=== PATIENT | male | born 1965 | race Caucasian/White ===

== ENCOUNTER → 2016-11-18 | Outpatient (CLI) | payer OTHER ==
[2016-11-18 14:02] LABS: Blood Urea Nitrogen 16 mg/dL (9-20); Non-African American GFR(MDRD) >60 (>60 ml/min/1.73 sqM)
--- NOTE | 2016-11-18 15:28 | CT ---
EXAMINATION TYPE: CT urogram wo/w con DATE OF EXAM: 11/18/2016 2:53 PM COMPARISON: NONE HISTORY: Microscopic hematuria CT DLP: 3773 mGycm Automated exposure control for dose reduction was used. FINDINGS: The unenhanced images demonstrate no evidence of nephrolithiasis or cholelithiasis. Gallbladder is co ntracted. A fluid attenuated cortically-based left renal midpole 1.4 cm simple cyst is present on the cortical medullary phase. No enhancing renal mass is identified. No perinephric fat stranding or obs tructive uropathy is seen within either kidney. The kidneys enhance and excrete symmetrically. The ki dneys are relatively symmetric in size. The liver, spleen, adrenal glands, and pancreas are of normal enhancement and morphology. No pancreat ic ductal dilatation. The visualized bowel is within normal limits without evidence of obstruction. The ureters are of normal course and caliber with near complete opacification. Urinary bladder is cir cumferentially smooth with a urachal remnant noted. Few prominent periaortic lymph nodes are seen, wh ich are not enlarged, measuring up to 9 mm. The aorta is of normal course and caliber containing mode rate atheromatous changes. Scarring is noted at the right lung base anteriorly. Cardiac size is unrem arkable. Osseous structures appear intact. No suspicious osseous lesions are present. Degenerative ch anges are appreciated of the femoral acetabular joints, right greater than left. IMPRESSION: 1. NO EVIDENCE OF NEPHROLITHIASIS, FILLING DEFECT WITHIN THE URINARY COLLECTING SYSTEM, OR URINARY BL ADDER WALL THICKENING. 2. LEFT SIMPLE RENAL CYST.
== END | disposition home or self-care (01) ==
LOC: RADCTMAIN 13:27
PROVIDERS: ATTEND Family Medicine
DX: N28.1 Cyst of kidney, acquired (principal)
CPT/HCPCS: 82565; 84520; 74178; 36415; 74400; Q9967

== ENCOUNTER → 2019-06-07 | Outpatient (CLI) | payer OTHER ==
--- NOTE | 2019-06-07 15:47 | US ---
EXAMINATION TYPE: US carotid duplex BILAT DATE OF EXAM: 06/07/2019 COMPARISON: NONE CLINICAL HISTORY: E78.5 Hyperlipidemia R03.0 Elevated BP reading. Dizziness, hyperlipidemia, HTN EXAM MEASUREMENTS: RIGHT: Peak Systolic Velocity (PSV) cm/sec ----- Right CCA: 102.9 ----- Right ICA: 94.1 ----- Right ECA: 131.5 ICA/CCA ratio: 0.9 RIGHT: End Diastole cm/sec ----- Right CCA: 30.3 ----- Right ICA: 27.0 ----- Right ECA: 29.2 LEFT: Peak Systolic Velocity (PSV) cm/sec ----- Left CCA: 90.9 ----- Left ICA: 92.0 ----- Left ECA: 128.9 ICA/CCA ratio: 1.0 LEFT: End Diastole cm/sec ----- Left CCA: 24.9 ----- Left ICA: 30.4 ----- Left ECA: 26.7 VERTEBRALS (direction of flow): Right Vertebral: Antegrade Left Vertebral: Antegrade Rhythm: Normal Mild plaque bilateral bifurcations. No evidence of significant stenosis IMPRESSION: No evidence for hemodynamically significant stenosis. Criteria for Assigning % of Stenosis / Diameter reduction (Estimation based on the indirect measurements of the internal carotid artery velocities (ICA PSV). 1. Normal (no stenosis)=ICA PSV < 125 cm/s: ratio < 2.0: ICA EDV<40 cm/s. 2. Less than 50% stenosis=ICA PSV < 125 cm/s: ratio < 2.0: ICA EDV<40 cm/s. 3. 50 to 69% stenosis=ICA PSV of 125 to 230 cm/s: ration 2.0 ? 4.0: ICA EDV 40-100 cm/s. 4. Greater than 70% stenosis to near occlusion= ICA PSV > 230 cm/s: ratio > 4.0: ICA EDV > 100 cm/s. 5. Near occlusion= ICA PSV velocities may be low or undetectable: variable ratio and ICA EDV. 6. Total occlusion=unable to detect flow.
--- NOTE | 2019-06-07 19:00 | ECHOF ---
Referral Reason:E78.5 Hyperlipidemia R03.0 Elevated BP reading MEASUREMENTS -------- HEIGHT: 170.2 cm WEIGHT: 127.0 kg BP: IVSd: 1.2 cm (0.6 - 1.1) LVIDd: 4.8 cm (3.9 - 5.3) LVPWd: 1.1 cm (0.6 - 1.1) IVSs: 1.4 cm LVIDs: 3.6 cm LVPWs: 1.3 cm LA Diam: 3.2 cm (2.7 - 3.8) LAESV Index (A-L): 20.86 ml/m Ao Diam: 3.5 cm (2.0 - 3.7) AV Cusp: 1.8 cm (1.5 - 2.6) LA Diam: 3.5 cm (2.7 - 3.8) MV EXCURSION: 21.171 mm (> 18.000) MV EF SLOPE: 92 mm/s (70 - 150) EPSS: 0.3 cm MV E Chip: 0.57 m/s MV DecT: 265 ms MV A Chip: 0.70 m/s MV E/A Ratio: 0.82 FINDINGS -------- Sinus rhythm. This was a technically adequate study. Morbid Obesity The left ventricular size is normal. There is mild concentric left ventricular hypertrophy. Overa ll left ventricular systolic function is normal with, an EF between 55 - 60 %. The right ventricle is normal in size. The left atrial size is normal. Normal LA size by volume 22+/-6 ml/m2. The right atrial size is normal. There is mild aortic valve sclerosis. Mild mitral annular calcification present. Mild mitral regurgitation is present. Mild tricuspid regurgitation present. Right ventricular systolic pressure is normal at < 35 mmHg. There is no evidence of pulmonary hypertension. The pulmonic valve was not well visualized. The aortic root size is normal. There is no pericardial effusion. CONCLUSIONS -------- 1. Sinus rhythm. 2. This was a technically adequate study. 3. Morbid Obesity 4. The left ventricular size is normal. 5. There is mild concentric left ventricular hypertrophy. 6. Overall left ventricular systolic function is normal with, an EF between 55 - 60 %. 7. The right ventricle is normal in size. 8. The left atrial size is normal. 9. Normal LA size by volume 22+/-6 ml/m2. 10. The right atrial size is normal. 11. There is mild aortic valve sclerosis. 12. Mild mitral annular calcification present. 13. Mild mitral regurgitation is present. 14. Mild tricuspid regurgitation present. 15. Right ventricular systolic pressure is normal at < 35 mmHg. 16. There is no evidence of pulmonary hypertension. 17. The pulmonic valve was not well visualized. 18. The aortic root size is normal. 19. There is no pericardial effusion. [employer]PR[employer]ICE MECHANIC: Adilene Lucas RDCS
== END | disposition home or self-care (01) ==
LOC: RADUSWWP 13:51
PROVIDERS: ATTEND Family Medicine
DX: R03.0 Elevated blood-pressure reading, without diagnosis of hypertension (principal); I08.1 Rheumatic disorders of both mitral and tricuspid valves; E78.5 Hyperlipidemia, unspecified
CPT/HCPCS: 93306; 93880; 93923

== ENCOUNTER → 2020-02-22 | Outpatient (CLI) | payer OTHER ==
--- NOTE | 2020-02-24 09:34 | MR ---
EXAMINATION TYPE: MR shoulder RT wo con DATE OF EXAM: 02/22/2020 COMPARISON: None HISTORY: Rt shoulder pain, decreased range of motion TECHNIQUE: Multiplanar, multisequence imaging of the right shoulder is performed without contrast. FINDINGS: There is an 8 mm through thickness partial tear of the anterior fibers of the supraspinatus tendon near and at its insertion. Proximal tendinopathy with thickening of the tendon noted. Mild thickening at the insertion of the infraspinatus tendon with thinning of the tendon compatible w ith partial non through thickness tear. Subscapularis tendon is intact. Biceps tendon appears to be within the bicipital groove and has a normal appearance within the intrac apsular portion of the tendon. Biceps anchor intact. Bony labrum are grossly intact by nonarthrogram technique. Glenohumeral ligaments are intact. No sizable joint effusion. Small amount of fluid in the subacromia l bursa. Arthropathy of the AC joint with mild impingement of the supraspinatus tendon. There does appear to b e mild atrophy of the muscles of the rotator cuff. IMPRESSION: 1. Impingement with a partial through thickness tear insertion anterior fibers measuring 8 mm of the supraspinatus tendon with no retraction. 2. Tendinopathy distal infraspinatus tendon and insertion with partial non through thickness tear.
== END | disposition home or self-care (01) ==
LOC: RADMRIMAIN 10:31
PROVIDERS: ATTEND Internal Medicine Rheumatology
DX: S46.011A Strain of muscle(s) and tendon(s) of the rotator cuff of right shoulder, initial encounter (principal)

== ENCOUNTER 2020-08-13 07:06 | Emergency (ER) | payer OTHER ==
[2020-08-13] MEDS ORDERED: SODIUM CHLORIDE 0.9% 1,000 ML IV STA (07:31)
--- NOTE | 2020-08-13 07:47 | ED ---
Arrhythmia/Palpitations HPI - General Chief Complaint: Arrhythmia/Palpitations Stated Complaint: sweating/new med/dizzy/racing heart Time Seen by Provider: 08/13/20 07:22 Source: patient, RN notes reviewed Mode of arrival: wheelchair Limitations: no limitations - History of Present Illness Initial Comments: 54-year-old male presents emergency Department with chief complaint of palpitations, lightheadedness, diaphoretic episodes. Patient states that he felt off last night states he just didn't feel well states he felt slightly lightheaded or dizzy. Patient states he went to sleep woke up this morning and states that he was sweating profusely states he did not feel hot. He states he is a cold sweat. Patient states that he checked his blood sugar the time in which it was 140. He states he took his blood pressure was very elevated at 160s over 90s and states that his pulse was between 1:15 and 120. He states is normally between 40 and 60 he states that he has slight pressure but no significant chest pain at this time. He has no complaints abdominal pain including nausea vomiting leg swelling or leg pain no history of DVT or PE - Related Data Previous Rx's Medication Instructions Recorded Azithromycin [Zithromax Z-pack (6 0 mg PO DIRECTED #1 pack 08/13/20 tabs)] Allergies Allergy/AdvReac Type Severity Reaction Status Date / Time Penicillins Allergy Unknown Verified 08/13/20 07:10 Childhood Review of Systems ROS Statement: Those systems with pertinent positive or pertinent negative responses have been documented in the HPI. ROS Other: All systems not noted in ROS Statement are negative. Past Medical History Past Medical History: Diabetes Mellitus, Hyperlipidemia, Hypertension, Rheumatoid Arthritis (RA), Thyroid Disorder History of Any Multi-Drug Resistant Organisms: None Reported Additional Past Surgical History / Comment(s): lung biopsy, thoracentesis Past Psychological History: Depression Smoking Status: Former smoker Past Alcohol Use History: Daily Past Drug Use History: None Reported General Exam Limitations: no limitations General appearance: alert, in no apparent distress Head exam: Present: atraumatic, normocephalic, normal inspection Eye exam: Present: normal appearance, PERRL, EOMI. Absent: scleral icterus, conjunctival injection, periorbital swelling ENT exam: Present: normal exam, normal oropharynx, mucous membranes moist Neck exam: Present: normal inspection, full ROM. Absent: tenderness, meningismus, lymphadenopathy Respiratory exam: Present: normal lung sounds bilaterally. Absent: respiratory distress, wheezes, rales, rhonchi, stridor Cardiovascular Exam: Present: normal rhythm, tachycardia, normal heart sounds. Absent: systolic murmur, diastolic murmur, rubs, gallop, clicks GI/Abdominal exam: Present: soft, normal bowel sounds. 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 Patient does admit that he has had a slight cough and history of rheumatoid lung disease. X-ray shows possibility of pneumonia. Patient was given Rocephin and discharged on azithromycin. There is no other acute maladies. - Lab Data Result diagrams: 08/13/20 07:32 08/13/20 07:32 Lab Results 08/13/20 08/13/20 08/13/20 Range/Units 07:32 07:32 07:32 WBC 8.4 (3.8-10.6) k/uL RBC 4.79 (4.30-5.90) m/uL Hgb 15.3 (13.0-17.5) gm/dL Hct 44.7 (39.0-53.0) % MCV 93.3 (80.0-100.0) fL MCH 32.0 (25.0-35.0) pg MCHC 34.3 (31.0-37.0) g/dL RDW 13.7 (11.5-15.5) % Plt Count 240 (150-450) k/uL MPV 6.6 Neutrophils % 55 % Lymphocytes % 32 % Monocytes % 7 % Eosinophils % 3 % Basophils % 1 % Neutrophils # 4.6 (1.3-7.7) k/uL Lymphocytes # 2.6 (1.0-4.8) k/uL Monocytes # 0.6 (0-1.0) k/uL Eosinophils # 0.3 (0-0.7) k/uL Basophils # 0.1 (0-0.2) k/uL PT 10.6 (9.0-12.0) sec INR 1.0 (<1.2) APTT 25.7 (22.0-30.0) sec D-Dimer 0.47 (<0.60) mg/L FEU Sodium 139 (137-145) mmol/L Potassium 4.8 (3.5-5.1) mmol/L Chloride 103 (98-107) mmol/L Carbon Dioxide 27 (22-30) mmol/L Anion Gap 9 mmol/L BUN 22 H (9-20) mg/dL Creatinine 0.96 (0.66-1.25) mg/dL Est GFR (CKD-EPI)AfAm >90 (>60 ml/min/1.73 sqM) Est GFR (CKD-EPI)NonAf 89 (>60 ml/min/1.73 sqM) Glucose 122 H (74-99) mg/dL Calcium 9.6 (8.4-10.2) mg/dL Magnesium 1.8 (1.6-2.3) mg/dL Total Bilirubin 0.4 (0.2-1.3) mg/dL AST 39 (17-59) U/L ALT 64 H (4-49) U/L Alkaline Phosphatase 100 (38-126) U/L Troponin I (0.000-0.034) ng/mL Total Protein 7.5 (6.3-8.2) g/dL Albumin 4.3 (3.5-5.0) g/dL Coronavirus (PCR) (Not Detectd) 08/13/20 08/13/20 Range/Units 07:32 08:43 WBC (3.8-10.6) k/uL RBC (4.30-5.90) m/uL Hgb (13.0-17.5) gm/dL Hct (39.0-53.0) % MCV (80.0-100.0) fL MCH (25.0-35.0) pg MCHC (31.0-37.0) g/dL RDW (11.5-15.5) % Plt Count (150-450) k/uL MPV Neutrophils % % Lymphocytes % % Monocytes % % Eosinophils % % Basophils % % Neutrophils # (1.3-7.7) k/uL Lymphocytes # (1.0-4.8) k/uL Monocytes # (0-1.0) k/uL Eosinophils # (0-0.7) k/uL Basophils # (0-0.2) k/uL PT (9.0-12.0) sec INR (<1.2) APTT (22.0-30.0) sec D-Dimer (<0.60) mg/L FEU Sodium (137-145) mmol/L Potassium (3.5-5.1) mmol/L Chloride (98-107) mmol/L Carbon Dioxide (22-30) mmol/L Anion Gap mmol/L BUN (9-20) mg/dL Creatinine (0.66-1.25) mg/dL Est GFR (CKD-EPI)AfAm (>60 ml/min/1.73 sqM) Est GFR (CKD-EPI)NonAf (>60 ml/min/1.73 sqM) Glucose (74-99) mg/dL Calcium (8.4-10.2) mg/dL Magnesium (1.6-2.3) mg/dL Total Bilirubin (0.2-1.3) mg/dL AST (17-59) U/L ALT (4-49) U/L Alkaline Phosphatase (38-126) U/L Troponin I <0.012 (0.000-0.034) ng/mL Total Protein (6.3-8.2) g/dL Albumin (3.5-5.0) g/dL Coronavirus (PCR) Not Detected (Not Detectd) Disposition Clinical Impression: Palpitations, Pneumonia Disposition: HOME SELF-CARE Condition: Stable Instructions (If sedation given, give patient instructions): Heart Palpitations (ED), Pneumonia (ED) Additional Instructions: Please return to the Emergency Department if symptoms worsen or any other concerns. Prescriptions: Azithromycin [Zithromax Z-pack (6 tabs)] 0 mg PO DIRECTED #1 pack Is patient prescribed a controlled substance at d/c from ED?: No Referrals: Alexus Owens DO [Primary Care Provider] - 1-2 days Time of Disposition: 09:24
[2020-08-13 07:59] LABS: Basophils # (A) 0.1 k/uL (0-0.2); Basophils % (A) 1 %; Eosinophils # (A) 0.3 k/uL (0-0.7); Eosinophils % (A) 3 %; HCT 44.7 % (39.0-53.0); HGB 15.3 gm/dL (13.0-17.5); Lymphocytes # (A) 2.6 k/uL (1.0-4.8); Lymphocytes % (A) 32 %; MCHC 34.3 g/dL (31.0-37.0); MCV 93.3 fL (80.0-100.0); Mean Platelet Volume 6.6; Monocytes # (A) 0.6 k/uL (0-1.0); Monocytes % (A) 7 %; Neutrophils # (A) 4.6 k/uL (1.3-7.7); Neutrophils % (A) 55 %; Platelet Count 240 k/uL (150-450); RBC 4.79 m/uL (4.30-5.90); RDW 13.7 % (11.5-15.5); WBC 8.4 k/uL (3.8-10.6)
[2020-08-13 08:18] LABS: ALT 64 U/L (4-49); AST 39 U/L (17-59); African American GFR (CKD) >90 (>60 ml/min/1.73 sqM); Albumin 4.3 g/dL (3.5-5.0); Alkaline Phosphatase 100 U/L (38-126); Anion Gap 9 mmol/L; Blood Urea Nitrogen 22 mg/dL (9-20); Calcium 9.6 mg/dL (8.4-10.2); Carbon Dioxide 27 mmol/L (22-30); Chloride 103 mmol/L (98-107); Glucose 122 mg/dL (74-99); Magnesium 1.8 mg/dL (1.6-2.3); Non-African American GFR(CKD) 89 (>60 ml/min/1.73 sqM); Potassium 4.8 mmol/L (3.5-5.1); Sodium 139 mmol/L (137-145); Total Bilirubin 0.4 mg/dL (0.2-1.3); Total Protein 7.5 g/dL (6.3-8.2)
[2020-08-13 08:21] LABS: D-Dimer 0.47 mg/L FEU (<0.60); Partial Thromboplastin Time 25.7 sec (22.0-30.0); Prothrombin Time 10.6 sec (9.0-12.0)
--- NOTE | 2020-08-13 08:23 | XR ---
EXAMINATION TYPE: XR chest 1V portable DATE OF EXAM: 08/13/2020 COMPARISON: 05/31/2013 INDICATION: Dysrhythmia TECHNIQUE: Single frontal view of the chest is obtained. FINDINGS: The heart size is normal. The pulmonary vasculature is normal. Some subtle increased right lower lobe infiltrate is present. Correlate for atelectasis or developing pneumonia. IMPRESSION: 1. There may be developing right lower lobe infiltrate. Clinical correlation and follow-up is recomme nded.
[2020-08-13] MEDS ORDERED: cefTRIAXone IN SWFI 1,000 MG/10 ML SYRINGE IVP STA (09:20)
[2020-08-13 10:35] VITALS: BP 124/62; PULSE 67; RESP 16; TEMP 98.1
== END 2020-08-13 10:35 | disposition home or self-care (01) ==
LOC: EC 07:06
DX: J18.9 Pneumonia, unspecified organism (principal); R00.2 Palpitations; Z20.822 Contact with and (suspected) exposure to COVID-19; E11.9 Type 2 diabetes mellitus without complications; I10 Essential (primary) hypertension; Z88.0 Allergy status to penicillin; Z87.891 Personal history of nicotine dependence
CPT/HCPCS: 36415; 71045; 80053; 83735; 84484; 85025; 85379; 85610; 85730; 87635; 93005; 96360; 99285

== ENCOUNTER → 2021-07-30 | Outpatient (CLI) | payer OTHER ==
--- NOTE | 2021-07-30 13:20 | CTL ---
EXAMINATION TYPE: CT Low Dose Lung DATE OF EXAM ORDERED: 07/30/2021 HISTORY: . Lung cancer screening CT DLP: 135.[address] CTDI: 4.0 mGy Automated exposure control for dose reduction was used. SCREENING VISIT: COMPARISON: 07/31/2020 TECHNIQUE: Low dose computed tomography scan was performed through the chest at 1 mm thick sections a nd reconstructed images in multiple planes at 1 mm and [address] DIAGNOSTIC QUALITY: Satisfactory FINDINGS: There are two 7 mm nodules in the right upper lobe. One subpleural in location. Findings are retrosp ectively stable. There are no new pulmonary nodules. Pleural-based thickening involving the right lung stable and unchanged from prior exam. No consolidat yue pneumonia or pneumothorax. No pleural effusion. There is dense coronary calcification and mild cardiomegaly. Atherosclerotic change of the aorta with evidence of aneurysm. Linear hyperdensity along the right lung base stable represent calcification o r previous intervention. Hypertrophic and degenerative changes of the spine. Structures of the upper abdomen demonstrate no de finite acute process. Small hiatal hernia suspected. Rounded area of low attenuation measures -45 Sergio nsfield unit within the stomach could represent a gastric lipoma. IMPRESSION: 1. Stable right upper lobe 7 mm pulmonary nodules unchanged from prior exam. 2. Dense coronary artery calcification. 3. There is a rounded low-density area within the visualized portions of the stomach. Since only part ially included. Measures approximately -45 Hounsfield units suggesting fat possible lipoma or fatty c ontent within the stomach. Clinical data CT of the abdomen is obtained as clinically warranted. CT LUNG RAD AND CT CHEST RECOMMENDATION: Lung-Rad 3 Probably Benign: 6 month follow-up LDCT.
== END | disposition home or self-care (01) ==
LOC: RADCTMAIN 12:01
PROVIDERS: ATTEND Family Medicine
DX: Z12.2 Encounter for screening for malignant neoplasm of respiratory organs (principal); R91.1 Solitary pulmonary nodule; I25.10 Atherosclerotic heart disease of native coronary artery without angina pectoris; Z87.891 Personal history of nicotine dependence
CPT/HCPCS: 71271

== ENCOUNTER → 2021-08-27 | Outpatient (CLI) | payer OTHER ==
[2021-08-27 15:54] LABS: African American GFR (CKD) >90 (>60 ml/min/1.73 sqM); Blood Urea Nitrogen 17 mg/dL (9-20); Non-African American GFR(CKD) >90 (>60 ml/min/1.73 sqM)
--- NOTE | 2021-08-29 11:07 | CT ---
EXAMINATION TYPE: CT abdomen pelvis wo/w con DATE OF EXAM: 08/27/2021 COMPARISON: 11/18/2016 INDICATION: Pt states study is to evaluate for lymphoma. Hx RA. DLP: 3940 mGycm, Automated exposure control for dose reduction was used. CONTRAST: 100 mL of Isovue 300. Study performed with Oral Contrast TECHNIQUE: Axial images were obtained from above the diaphragm to the pubic rami in the axial plane a t 5 mm thick sections. Reconstructed images are reviewed on the computer in the coronal plane. FINDINGS: Limited CT sections are obtained the lung bases. The lung bases are clear. Minimal coronary artery calcification is noted. CT ABDOMEN: Liver: Normal Spleen: Normal Pancreas: Normal Adrenal glands: The adrenal glands are normal. Gallbladder: Normal Kidneys: No masses are evident. No hydronephrosis is present. There is a 1.9 cm cyst in the posteri or mid left kidney measuring 17 Hounsfield units. Delayed images were obtained through the kidneys, which remain unremarkable. No renal stones are identified. Aorta: Vascular calcification is within the aorta. Inferior vena cava: Normal. CT PELVIS: Loops of bowel within the abdomen and pelvis are normal. There are loops of bowel which are incom pletely distended or lack oral contrast limiting their evaluation. Appendix: Normal as visualized. Urinary bladder: Normal. Genitourinary structures: Prostate is normal Osseous structures: No suspicious lytic or sclerotic lesions. Lymphadenopathy: No suspicious inguinal or obturator canal or iliac chain adenopathy is evident. No s uspicious periaortic or retrocaval adenopathy. No retrocrural adenopathy. IMPRESSIONS: 1. No suspicious enlarged lymphadenopathy within the CT abdomen pelvis. 2. Small left renal cyst.
== END | disposition home or self-care (01) ==
LOC: RADCTMAIN 15:13
PROVIDERS: ATTEND Family Medicine
DX: N28.1 Cyst of kidney, acquired (principal)
CPT/HCPCS: 82565; 84520; 74178; 36415; Q9967

== ENCOUNTER → 2022-06-16 | Outpatient (CLI) | payer OTHER ==
--- NOTE | 2022-06-17 12:24 | US ---
EXAMINATION TYPE: US carotid duplex BILAT DATE OF EXAM: 06/16/2022 COMPARISON: NONE CLINICAL HISTORY: R42 DIZZINESS. syncope TECHNIQUE: Carotid duplex ultrasound examination. Indirect Doppler criteria was utilized. FINDINGS: EXAM MEASUREMENTS: RIGHT: Peak Systolic Velocity (PSV) cm/sec ----- Right CCA: 130 ----- Right ICA: 133 ----- Right ECA: 174 ICA/CCA ratio: 1.0 RIGHT: End Diastole cm/sec ----- Right CCA: 21.7 ----- Right ICA: 19.9 ----- Right ECA: 22.7 LEFT: Peak Systolic Velocity (PSV) cm/sec ----- Left CCA: 163 ----- Left ICA: 116 ----- Left ECA: 209 ICA/CCA ratio: .7 LEFT: End Diastole cm/sec ----- Left CCA: 26.8 ----- Left ICA: 17.9 ----- Left ECA: 12.8 VERTEBRALS (direction of flow): Right Vertebral: Antegrade Left Vertebral: Antegrade Rhythm: Normal RN PALLIATIVE CARE NOTES: No significant stenosis seen IMPRESSION: There is moderate elevation of the right internal carotid artery velocity which would suggest narrowi ng between 50 and 69%. Significant plaquing however is not identified. Correlate with the patient's s ymptoms. Criteria for Assigning % of Stenosis / Diameter reduction (Estimation based on the indirect measurements of the internal carotid artery velocities (ICA PSV). 1. Normal (no stenosis)=ICA PSV < 125 cm/s: ratio < 2.0: ICA EDV<40 cm/s. 2. Less than 50% stenosis=ICA PSV < 125 cm/s: ratio < 2.0: ICA EDV<40 cm/s. 3. 50 to 69% stenosis=ICA PSV of 125 to 230 cm/s: ration 2.0 ? 4.0: ICA EDV 40-100 cm/s. 4. Greater than 70% stenosis to near occlusion= ICA PSV > 230 cm/s: ratio > 4.0: ICA EDV > 100 cm/s. 5. Near occlusion= ICA PSV velocities may be low or undetectable: variable ratio and ICA EDV. 6. Total occlusion=unable to detect flow.
== END | disposition home or self-care (01) ==
LOC: RADUSWWP 16:14
PROVIDERS: ATTEND Family Medicine
DX: R42 Dizziness and giddiness (principal)
CPT/HCPCS: 93880

== ENCOUNTER → 2022-06-27 | Outpatient (CLI) | payer OTHER ==
--- NOTE | 2022-06-27 18:22 | CT ---
EXAMINATION TYPE: CT abdomen w con DATE OF EXAM: 06/27/2022 COMPARISON: Prior CT abdomen and pelvis appear 06/05/2022 HISTORY: Abnormal results of liver function studies. Liver enzyme levels are high. CT DLP: 2381.0 mGycm Automated exposure control for dose reduction was used. TECHNIQUE: Helical acquisition of images was performed from the lung bases through the top of iliac crest to include entire abdomen. CONTRAST: Performed with Oral Contrast and with IV Contrast, patient injected with 100cc mL of Isovue 300. FINDINGS: LUNG BASES: No significant abnormality is appreciated. LIVER/GB: Liver now more heterogeneous and enlarged with suspected innumerable heterogeneous hypodens e masses occupying the majority of the liver. Gallbladder now suspected surgically absent. No biliary dilatation. No adjacent ascites. PANCREAS: No significant abnormality is seen. SPLEEN: No significant abnormality is seen. ADRENALS: No significant abnormality is seen. KIDNEYS: There is 1.7 cm simple appearing thin-walled cyst in the posterior left kidney upper to mid pole level series 5 image 39. BOWEL: Oral contrast does not reach colonic level. No suspicious small or large bowel dilatation is seen.r LYMPH NODES: New heterogeneous 2.9 x 2.7 cm lymph node just below the diaphragm and inferior to the gastric fundus, posterior to the pancreatic body axial image 33. OSSEOUS STRUCTURES: No significant abnormality is seen. FREE AIR: No free air is visualized. OTHER: [id number] calcified plaque of the infrarenal abdominal aorta extends into branch vessel s. IMPRESSION: There is new hepatomegaly with innumerable heterogeneous solid masses occupying the liver suggestive of diffuse metastatic disease or less likely primary hepatocellular carcinoma. Findings n ew from low-dose lung screening CT March 07. Abnormal mass or adenopathy in the posterior upper abdo men is also noted new from prior CT. A Yellow level critical message alert has been initiated for Alexus Owens DO via the [employer] Critical Results System on 06/27/2022 6:19 PM. This message alert has been sent to [facility] DO via the preferences provided by the clinician for the receipt of Radiology Critical Findings . Message ID [id number].
== END | disposition home or self-care (01) ==
LOC: RADCTMAIN 16:55
PROVIDERS: ATTEND Family Medicine
DX: R16.0 Hepatomegaly, not elsewhere classified (principal); R94.5 Abnormal results of liver function studies
CPT/HCPCS: 74160; Q9967 ×2

== ENCOUNTER 2022-07-26 08:55 | Day surgery (SDC) | payer OTHER ==
[2022-07-26] MEDS ORDERED: ALPRAZolam 0.5 MG TAB PO PRN (09:25)
[2022-07-26] MEDS ORDERED: HYDROmorphone 0.5 MG/0.5 ML SYRINGE IVP PRN (09:25)
[2022-07-26] MEDS ORDERED: THROMBIN (BOVINE) 5,000 UNIT VIAL MISCELLANE STA (09:37)
[2022-07-26 09:41] VITALS: TEMP 98.1
[2022-07-26 09:42] LABS: Mean Platelet Volume 8.6; Platelet Count 349 k/uL (150-450)
[2022-07-26 09:52] LABS: INR 1.2 (<1.2); Prothrombin Time 12.7 sec (9.0-12.0)
[2022-07-26] MEDS ORDERED: HYDROcodone/APAP 5-325MG 1 EACH TAB PO PRN (11:05)
--- NOTE | 2022-07-26 11:55 | CT ---
EXAMINATION TYPE: CT limited or follow up study DATE OF EXAM: 07/26/2022 COMPARISON: 06/27/2022 HISTORY: Liver Mass CT DLP: 2625 mGycm Automated exposure control for dose reduction was used. FINDINGS: Limited scans performed prior to CT guided liver biopsy. There is a small amount of ascites adjacent to the liver and numerous areas of hypodensity seen within the liver compatible with numerous hepatic masses suspicious for malignancy. A prominent soft tissue nodule seen in the peripancreatic region s table. Hypertrophic and degenerative changes in the spine. 3 mm nodule too small to characterize left lung base. Subsegmental changes right lung base. IMPRESSION: 1. PREPROCEDURAL PLANNING SEE ABOVE.
--- NOTE | 2022-07-26 12:17 | US ---
EXAMINATION TYPE: US biopsy liver DATE OF EXAM: 07/26/2022 COMPARISON: NONE HISTORY: Liver mass The procedure was explained to the patient. The risks, complications, benefits, and alternatives wer e discussed and any questions were answered. Informed consent was obtained. Patient was placed supi ne on the CT table and prepped and draped in the usual sterile fashion. All elements of maximal barrier and sterile technique utilized. Preprocedural ultrasound demonstrated no focal lesions but is diffusely heterogeneous lesion. Pathology was requested given the lack of di screte lesion to confirm adequate needle placement prior to core biopsy. Utilizing CT guidance, an 18 gauge core biopsy needle access into the right lobe of the liver was ac hieved and a single 18 gauge core sample was obtained. Prior to the core biopsy a single FNA was per formed through the core biopsy introducer to confirm needle with appropriate position. Pathology conf irmed adequate needle placement. Therefore the core biopsy sample was subsequently obtained. The unique ent was stable throughout the procedure and remained stable upon discharge. IMPRESSION: 1. Successful 18 gauge core biopsy and FNA of the liver.
[2022-07-26 17:28] VITALS: PULSE 94
[2022-07-26 17:29] VITALS: BP 118/78; RESP 18
== END 2022-07-26 15:10 | disposition home or self-care (01) ==
LOC: RADPROMAIN 08:55
PROVIDERS: ATTEND Internal Medicine
DX: C22.9 Malignant neoplasm of liver, not specified as primary or secondary (principal)
CPT/HCPCS: 88305; 88173; 82947; 85049; 85610; 88342; 88307; 88341; 36415; 47000; 76942; 76380; 10009; J1170; Q9967

== ENCOUNTER 2022-07-27 09:50 | Emergency (ER) | payer OTHER ==
[2022-07-27 09:54] VITALS: TEMP 98.6
[2022-07-27] MEDS ORDERED: SODIUM CHLORIDE 0.9% 1,000 ML IV ONE (10:22)
--- NOTE | 2022-07-27 10:26 | ED ---
General Adult HPI - General Chief complaint: Recheck/Abnormal Lab/Rx Stated complaint: abd labs Time Seen by Provider: 07/27/22 10:03 Source: patient, RN notes reviewed Mode of arrival: ambulatory Limitations: no limitations - History of Present Illness Initial comments: 56-year-old male 1 day status post liver biopsy presenting to the emergency department with dizziness and lightheadedness. Patient reports that he has had his symptoms since being discharged yesterday. He admits to accompanying symptoms of worsening fatigue and shortness of breath. He also reports he has not had a BM or void since yesterday morning. He has not tried anything for his symptoms. He denies fever, chest pain, palpitations, hematemesis, melena, hematochezia, nausea, vomiting. - Related Data Home Medications Medication Instructions Recorded Confirmed Celecoxib [CeleBREX] 200 mg PO BID 08/13/20 07/27/22 Certolizumab Pegol [Cimzia] 400 mg SQ Q28D 08/13/20 07/27/22 DULoxetine HCL [Cymbalta] 60 mg PO HS 08/13/20 07/27/22 Hydroxychloroquine Sulfate 200 mg PO BID 08/13/20 07/27/22 [Plaquenil] Levothyroxine Sodium 25 mcg PO DAILY 08/13/20 07/27/22 lisinopriL 40 mg PO DAILY 08/13/20 07/27/22 sulfaSALAzine [Sulfasalazine] 1,000 mg PO BID 07/14/22 07/27/22 Allergies Allergy/AdvReac Type Severity Reaction Status Date / Time Penicillins Allergy Rash/Hives Verified 07/27/22 11:57 Review of Systems ROS Statement: Those systems with pertinent positive or pertinent negative responses have been documented in the HPI. ROS Other: All systems not noted in ROS Statement are negative. Past Medical History Past Medical History: Diabetes Mellitus, Hyperlipidemia, Hypertension, Rheumatoid Arthritis (RA), Thyroid Disorder Additional Past Medical History / Comment(s): stopped oral meds for diabetes due to hypoglycemia. Being investiagted for liver lesion jul 2022 History of Any Multi-Drug Resistant Organisms: None Reported Additional Past Surgical History / Comment(s): lung biopsy-RA lung per pt. Neg for cancer, thoracentesis - 10 years ago Past Psychological History: Depression Smoking Status: Former smoker Past Alcohol Use History: Daily, Heavy Past Drug Use History: None Reported General Exam Limitations: no limitations General appearance: alert, in no apparent distress, obese Head exam: Present: atraumatic, normocephalic, normal inspection Eye exam: Present: normal appearance, PERRL, EOMI. Absent: scleral icterus, conjunctival injection, periorbital swelling ENT exam: Present: normal exam, mucous membranes moist, other (eyes jaundice ) Neck exam: Present: normal inspection. Absent: tenderness, meningismus, lymphadenopathy Respiratory exam: Present: normal lung sounds bilaterally. Absent: respiratory distress, wheezes, rales, rhonchi, stridor Cardiovascular Exam: Present: regular rate, normal rhythm, normal heart sounds. Absent: systolic murmur, diastolic murmur, rubs, gallop, clicks GI/Abdominal exam: Present: soft, normal bowel sounds. Absent: distended, tenderness, guarding, rebound, rigid Extremities exam: Present: normal inspection, full ROM, normal capillary refill. Absent: tenderness, pedal edema, joint swelling, calf tenderness Back exam: Present: normal inspection Neurological exam: Present: alert, oriented X3, CN II-XII intact Psychiatric exam: Present: normal affect, normal mood Skin exam: Present: warm, dry, intact, normal color, other (He appears jaundice ). Absent: rash Course Vital Signs 07/27/22 07/27/22 07/27/22 09:51 11:00 11:30 Temperature 98.6 F Pulse Rate 93 84 84 Respiratory 22 20 17 Rate Blood Pressure 94/62 104/51 O2 Sat by Pulse 91 L 95 94 L Oximetry 07/27/22 07/27/22 07/27/22 12:00 12:30 13:00 Temperature Pulse Rate 87 80 79 Respiratory 15 20 21 Rate Blood Pressure 96/59 89/43 101/54 O2 Sat by Pulse 93 L Oximetry 07/27/22 07/27/22 13:30 14:05 Temperature Pulse Rate 84 87 Respiratory 21 18 Rate Blood Pressure 100/46 91/43 O2 Sat by Pulse 93 L 98 Oximetry - Reevaluation(s) Reevaluation #1: 07/27/22 12:48 Chani Gasca denied patient for transfer Reevaluation #2: 07/27/22 13:06 Patient updated on results. Patient aware of need for transfer and is agreeable with the plan. Reevaluation #3: 07/27/22 13:[address] Gonzalo PETTIT Hygiene Assistant who agrees and accepts the patient for transfer EKG Findings - EKG Comments: EKG Findings:: I interpreted the following: EKG performed at 10:37. Rate 87 bpm, NSR. AK 182, QRS 99, Qt/Qtc 361/405 Medical Decision Making - Medical Decision Making Was pt. sent in by a medical professional or institution (, VESTA, FENCE MACHINE OPERATOR, urgent care, hospital, or usp...) When possible be specific @ -[No] Did you speak to anyone other than the patient for history (EMS, parent, family, police, friend...)? What history was obtained from this source @ -[No] Did you review nursing and triage notes (agree or disagree)? Why? @ -[I reviewed and agree with nursing and triage notes] Were old charts reviewed (outside hosp., previous admission, EMS record, old EKG, old radiological studies, urgent care reports/EKG's, usp records)? Report findings @ -[No old charts were reviewed] Differential Diagnosis (chest pain, altered mental status, abdominal pain women, abdominal pain men, vaginal bleeding, weakness, fever, dyspnea, syncope, headache, dizziness, GI bleed, back pain, seizure, CVA, palpatations, mental health)? @ -[not applicable] EKG interpreted by me (3pts min.). @ -[As above] X-rays interpreted by me (1pt min.). @ -KUB XR negative for acute abdominal process CT interpreted by me (1pt min.). @ -[None done] U/S interpreted by me (1pt. min.). @ -[None done] What testing was considered but not performed or refused? (CT, X-rays, U/S, labs)? Why? @ -[None] What meds were considered but not given or refused? Why? @ -[None] Did you discuss the management of the patient with other professionals (professionals i.e. VESTA Swartz, FENCE MACHINE OPERATOR, lab, RT, psych nurse, social media coordinator, editor publications, teacher, chief school finance officer, director case management)? Give summary @ -CAse discussed with LINWOOD Fernández who agrees to evaluate patient upon arrival to [facility] Case discusssed with Ben Aldana who agrees and accepts the patient for transfer Was smoking cessation discussed for >3mins.? @ -[No] Was critical care preformed (if so, how long)? @ -Yes 30 minutes Were there social determinants of health that impacted care today? How? (Homelessness, low income, unemployed, alcoholism, drug addiction, transportation, low edu. Level, literacy, decrease access to med. care, alf, re hab)? @ -[No] Was there de-escalation of care discussed even if they declined (Discuss DNR or withdrawal of care, Hospice)? DNR status @ -[No] What co-morbidities impacted this encounter? (DM, HTN, Smoking, COPD, CAD, Cancer, CVA, ARF, Chemo, Hep., AIDS, mental health diagnosis, sleep apnea, morbid obesity)? @ -[None] Was patient admitted / discharged? Hospital course, mention meds given and route, prescriptions, significant lab abnormalities, going to OR and other pertinent info. @ 56-year-old male presents to the emergency department with dizziness and fatigue status post liver biopsy that was performed at this facility on 07/26/2022. Patient had a history and physical were performed. Physical exam reveals jaundice, obese patient in no acute distress. Patient had lab work and imaging performed while in the ED. Labs remarkable for: WBC 12.9, NA 127, K 6.7, total biliubin 15.6, conjugated bilirubin 9.2, alk phos 623, ALT 588, lipase 117. Based on the above lab results I believe patient should be transferred to facility with GI coverage. I discussed the case with Ben Aldana who agrees with the case and accepts the patient for ER to ER transfer with a consult to Dr. Sánchez, GI and nephrology. I discussed the above results with the patient, patient verbalized understanding and is agreeable with plan for transfer. Patient transferred in stable condition. I discussed the case with JAY Campos who agrees with plan of care. Undiagnosed new problem with uncertain prognosis? @ MAR, Hyperkalemia, hyperbilirubinemia Drug Therapy requiring intensive monitoring for toxicity (Heparin, Nitro, Insulin, Cardizem)? @ -[No] Were any procedures done? @ -[No] Diagnosis/symptom? MAR, Hyperkalemia, hyperbilirubinemia Acute, or Chronic, or Acute on Chronic? @ -acute Uncomplicated (without systemic symptoms) or Complicated (systemic symptoms)? @ -complicated Side effects of treatment? @ -[No] Exacerbation, Progression, or Severe Exacerbation? @ -[No] Poses a threat to life or bodily function? How? (Chest pain, USA, ND, pneumonia, PE, COPD, DKA, ARF, appy, cholecystitis, CVA, Diverticulitis, Homicidal, Suicidal, threat to staff... and all critical care pts) @ -[No] - Lab Data Result diagrams: 07/27/22 11:09 07/27/22 11:09 Lab Results 07/27/22 07/27/22 07/27/22 Range/Units 11:09 11:09 11:09 WBC 12.9 H (3.8-10.6) k/uL RBC 4.68 (4.30-5.90) m/uL Hgb 14.8 (13.0-17.5) gm/dL Hct 46.9 (39.0-53.0) % MCV 100.1 H (80.0-100.0) fL MCH 31.7 (25.0-35.0) pg MCHC 31.7 (31.0-37.0) g/dL RDW 19.1 H (11.5-15.5) % Plt Count 336 (150-450) k/uL MPV 9.1 Neutrophils % (Manual) 81 % Band Neuts % (Manual) 1 % Lymphocytes % (Manual) 13 % Monocytes % (Manual) 5 % Eosinophils % (Manual) 1 % Metamyelocytes % 1 % Neutrophils # (Manual) 10.50 H (1.3-7.7) k/uL Lymphocytes # (Manual) 1.68 (1.0-4.8) k/uL Monocytes # (Manual) 0.65 (0-1.0) k/uL Eosinophils # (Manual) 0.13 (0-0.7) k/uL Metamyelocytes # (Man) 0.13 H (0) k/uL Nucleated RBCs 0 (0-0) /100 WBC Manual Slide Review Performed Hypochromasia Slight Anisocytosis Slight Macrocytosis Moderate Target Cells Present PT (9.0-12.0) sec INR (<1.2) Sodium 127 L (137-145) mmol/L Potassium 6.7 H* (3.5-5.1) mmol/L Chloride 92 L (98-107) mmol/L Carbon Dioxide 11 L (22-30) mmol/L Anion Gap 24 mmol/L BUN 77 H (9-20) mg/dL Creatinine 4.32 H (0.66-1.25) mg/dL Est GFR (CKD-EPI)AfAm 16 (>60 ml/min/1.73 sqM) Est GFR (CKD-EPI)NonAf 14 (>60 ml/min/1.73 sqM) Glucose 63 L (74-99) mg/dL POC Glucose (mg/dL) (70-110) mg/dL POC Glu Closet Builder ID Calcium 7.7 L (8.4-10.2) mg/dL Total Bilirubin 15.6 H* (0.2-1.3) mg/dL Conjugated Bilirubin 9.2 H (0.0-0.3) mg/dL Unconjugated Bilirubin 1.1 (0.0-1.1) mg/dL Delta Bilirubin 5.3 H (0.0-0.2) mg/dL AST 2713 H (17-59) U/L ALT 588 H (4-49) U/L Alkaline Phosphatase 623 H (38-126) U/L Troponin I 0.024 (0.000-0.034) ng/mL Total Protein 7.3 (6.3-8.2) g/dL Albumin 2.9 L (3.5-5.0) g/dL Lipase 117 (23-300) U/L 07/27/22 07/27/22 07/27/22 Range/Units 13:00 13:31 14:02 WBC (3.8-10.6) k/uL RBC (4.30-5.90) m/uL Hgb (13.0-17.5) gm/dL Hct (39.0-53.0) % MCV (80.0-100.0) fL MCH (25.0-35.0) pg MCHC (31.0-37.0) g/dL RDW (11.5-15.5) % Plt Count (150-450) k/uL MPV Neutrophils % (Manual) % Band Neuts % (Manual) % Lymphocytes % (Manual) % Monocytes % (Manual) % Eosinophils % (Manual) % Metamyelocytes % % Neutrophils # (Manual) (1.3-7.7) k/uL Lymphocytes # (Manual) (1.0-4.8) k/uL Monocytes # (Manual) (0-1.0) k/uL Eosinophils # (Manual) (0-0.7) k/uL Metamyelocytes # (Man) (0) k/uL Nucleated RBCs (0-0) /100 WBC Manual Slide Review Hypochromasia Anisocytosis Macrocytosis Target Cells PT 13.9 H (9.0-12.0) sec INR 1.4 H (<1.2) Sodium (137-145) mmol/L Potassium (3.5-5.1) mmol/L Chloride (98-107) mmol/L Carbon Dioxide (22-30) mmol/L Anion Gap mmol/L BUN (9-20) mg/dL Creatinine (0.66-1.25) mg/dL Est GFR (CKD-EPI)AfAm (>60 ml/min/1.73 sqM) Est GFR (CKD-EPI)NonAf (>60 ml/min/1.73 sqM) Glucose (74-99) mg/dL POC Glucose (mg/dL) 71 109 (70-110) mg/dL POC Glu Closet Builder ID Schoof, Elina Schoof, Elina Calcium (8.4-10.2) mg/dL Total Bilirubin (0.2-1.3) mg/dL Conjugated Bilirubin (0.0-0.3) mg/dL Unconjugated Bilirubin (0.0-1.1) mg/dL Delta Bilirubin (0.0-0.2) mg/dL AST (17-59) U/L ALT (4-49) U/L Alkaline Phosphatase (38-126) U/L Troponin I (0.000-0.034) ng/mL Total Protein (6.3-8.2) g/dL Albumin (3.5-5.0) g/dL Lipase (23-300) U/L Disposition Clinical Impression: Hyperkalemia, Hyperbilirubinemia, Acute kidney failure Disposition: OTHER INSTITUTION NOT DEFINED Condition: Fair Is patient prescribed a controlled substance at d/c from ED?: No Referrals: Alexus Owens DO [Primary Care Provider] - 1-2 days Time of Disposition: 18:56 - Out of Hospital Transfer - Req. Specs Out of Hospital Transfer - Requested Specifics: Other Emergency Center ([facility])
--- NOTE | 2022-07-27 11:40 | XR ---
EXAMINATION TYPE: XR KUB DATE OF EXAM: 07/27/2022 COMPARISON: None INDICATION: Abdomen pain with constipation TECHNIQUE: Single view abdomen frontal projection upright view FINDINGS: There is a normal bowel gas pattern. Psoas margins are normal. No organomegaly is present. Contrast is evident within the urinary bladder. There is elevation of the right diaphragm. No mass ef fect is evident. IMPRESSION: 1. Nonspecific abdomen.
[2022-07-27 11:51] LABS: Albumin 2.9 g/dL (3.5-5.0); Bilirubin, Conjugated 9.2 mg/dL (0.0-0.3); Bilirubin, Delta 5.3 mg/dL (0.0-0.2); Bilirubin,Unconjugated 1.1 mg/dL (0.0-1.1); Calcium 7.7 mg/dL (8.4-10.2); Total Protein 7.3 g/dL (6.3-8.2)
[2022-07-27 11:52] LABS: Anisocytosis Slight; HCT 46.9 % (39.0-53.0); HGB 14.8 gm/dL (13.0-17.5); Hypochromasia Slight; MCH 31.7 pg (25.0-35.0); MCHC 31.7 g/dL (31.0-37.0); MCV 100.1 fL (80.0-100.0); Macrocytosis Moderate; Mean Platelet Volume 9.1; Platelet Count 336 k/uL (150-450); RBC 4.68 m/uL (4.30-5.90); RDW 19.1 % (11.5-15.5); WBC 12.9 k/uL (3.8-10.6)
[2022-07-27 12:16] LABS: Potassium 6.7 mmol/L (3.5-5.1)
[2022-07-27 12:17] LABS: Total Bilirubin 15.6 mg/dL (0.2-1.3)
[2022-07-27 12:22] LABS: Nucleated Red Blood Cells 0 /100 WBC (0-0)
[2022-07-27] MEDS ORDERED: INSULIN REGULAR 100 UNIT/ML VIAL (IV) IV ONE (12:23)
[2022-07-27] MEDS ORDERED: DEXTROSE 50% SYRINGE 50 ML IVP STA (12:23)
[2022-07-27] MEDS ORDERED: CALCIUM GLUCONATE IN NACL 1 GM in SALINE 1 100ML.BAG IVPB ONE (12:23)
[2022-07-27 12:24] LABS: Band Neutrophils % 1 %; Eosinophils # (M) 0.13 k/uL (0-0.7); Lymphocytes # (M) 1.68 k/uL (1.0-4.8); Metamyelocytes # (M) 0.13 k/uL (0); Metamyelocytes % 1 %; Monocytes # (M) 0.65 k/uL (0-1.0); Neutrophils % (M) 81 %; Total Cells Counted 200
[2022-07-27 12:25] LABS: Target Cells Present
[2022-07-27] MEDS ORDERED: SODIUM ZIRCONIUM CYCLOSILICATE 10 GM PACKET PO SCH (12:30)
[2022-07-27] MEDS ORDERED: ALBUTEROL NEBULIZED (CONC) 20 MG, SODIUM CHLORIDE 0.9% NEBULIZ 3 ML INHALATION ONE ×2 (12:39)
[2022-07-27 13:17] LABS: INR 1.4 (<1.2); Prothrombin Time 13.9 sec (9.0-12.0)
[2022-07-27 13:33] LABS: Glucose,Whole Blood 71 mg/dL (70-110)
[2022-07-27 14:04] LABS: Glucose,Whole Blood 109 mg/dL (70-110)
[2022-07-27 14:09] VITALS: BP 91/43; PULSE 87; RESP 18
== END 2022-07-27 14:09 | disposition other institution (70) ==
LOC: EC 09:50
DX: E87.5 Hyperkalemia (principal); N17.9 Acute kidney failure, unspecified; E80.6 Other disorders of bilirubin metabolism; I10 Essential (primary) hypertension; E11.9 Type 2 diabetes mellitus without complications; F32.A Depression, unspecified; E07.9 Disorder of thyroid, unspecified; Z79.890 Hormone replacement therapy; Z88.0 Allergy status to penicillin; Z79.899 Other long term (current) drug therapy; Z87.891 Personal history of nicotine dependence
CPT/HCPCS: 36415; 93005; 80053; 82248; 83690; 84484; 85025; 85610; 74018; 99284; 96374; 96375; 96361; J0611